=== PATIENT | female | born 1970 | race African-American/Black ===

== ENCOUNTER 2017-06-27 13:15 | Emergency (ER) | payer OTHER ==
[~2017-06-27] VITALS: Ht 180.3 cm; Wt 80.0 kg
[2017-06-27 13:30] VITALS: BP 140/83; PULSE 93; RESP 16; TEMP 98.8; O2SAT 100
[2017-06-27] MEDS ORDERED: VENL1CAP38 PO (13:39)
[2017-06-27] MEDS ORDERED: HYDR50TA94 PO (13:39)
[2017-06-27] MEDS ORDERED: LISI-515 PO (13:39)
[2017-06-27] MEDS ORDERED: GABA600T PO (13:39)
[2017-06-27] MEDS ORDERED: ELVI1TAB3 PO (13:39)
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
[2017-06-27] MEDS ORDERED: ACYC5OIN4 TOPICAL (14:51)
[2017-06-27] MEDS ORDERED: ORPHENADRINE INJ 60 MG/2 ML AMP IM ONE (15:00)
[2017-06-27] MEDS ORDERED: KETOROLAC TROMETHAMINE 60 MG/2 ML (IM) VIAL IM ONE (15:00)
== END 2017-06-27 15:38 | disposition home or self-care (01) ==
LOC: NEPD 13:15
DX: M54.5 Low back pain (principal); V59.60XA Unspecified occupant of pick-up truck or van injured in collision with unspecified motor vehicles in traffic accident, initial encounter; B00.1 Herpesviral vesicular dermatitis; G89.29 Other chronic pain; F31.9 Bipolar disorder, unspecified; B20 Human immunodeficiency virus [HIV] disease; I10 Essential (primary) hypertension; G62.9 Polyneuropathy, unspecified; Z72.0 Tobacco use
CPT/HCPCS: 72100; 96372; 99283; J1885; J2360

== ENCOUNTER 2017-07-04 03:22 | Observation (INO) | payer OTHER ==
[~2017-07-04] VITALS: Ht 180.3 cm; Wt 91.0 kg
[~2017-07-04 03:22] MED LIST: ACYC5OIN4 TOPICAL; ELVI1TAB3 PO; GABA600T PO; HYDR50TA94 PO; LISI-515 PO; VENL1CAP38 PO
[2017-07-04 03:27] VITALS: BP 136/102; PULSE 90; RESP 18; O2SAT 96
[2017-07-04] MEDS ORDERED: RISP0.5T2 PO (03:35)
[2017-07-04] MEDS ORDERED: CITA20TA4 PO (03:35)
[2017-07-04] MEDS ORDERED: SODIUM CHLORID 0.9% 500 ML INJ 500 ML IV ONE (03:45)
[2017-07-04] MEDS ORDERED: SODIUM CHLORIDE 0.9% FLUSH 10 ML FLUSH IV FLUSH PRN ×2 (03:45→06:30)
[2017-07-04] MEDS ORDERED: KETOROLAC TROMETHAMINE 30 MG/ML (IVP) VIAL IVP ONE (03:45)
[2017-07-04 04:04] LABS: AUTOMATED NEUTROPHIL # 8.9 TH/MM3 (1.8-7.7); BASOPHIL # 0.1 TH/MM3 (0-0.2); BASOPHIL % 0.7 % (0.0-2.0); EOSINOPHIL # 0.1 TH/MM3 (0-0.4); EOSINOPHIL % 0.6 % (0.0-4.0); HEMATOCRIT 29.7 % (35.0-46.0); HEMOGLOBIN 9.7 GM/DL (11.6-15.3); LYMPH % 17.4 % (9.0-44.0); MEAN CELL VOLUME 85.9 FL (80.0-100.0); MEAN CORPUSCULAR HGB CONC 32.6 % (32.0-36.0); MEAN PLATELET VOLUME 9.6 FL (7.0-11.0); MONO % 3.4 % (0.0-8.0); MONOCYTE # 0.4 TH/MM3 (0-0.9); NEUT % 77.9 % (16.0-70.0); PLATELET COUNT 419 TH/MM3 (150-450); RED BLOOD COUNT 3.45 MIL/MM3 (4.00-5.30); RED CELL DISTRIBUTION WIDTH 15.4 % (11.6-17.2); WHITE BLOOD COUNT 11.5 TH/MM3 (4.0-11.0)
[2017-07-04 04:12] LABS: INTERNATIONAL NORMALIZED RATIO 1.2 RATIO; PROTHROMBIN TIME - PATIENT 11.7 SEC (9.8-11.6)
[2017-07-04 04:20] LABS: ALBUMIN 2.7 GM/DL (3.4-5.0); ALT (GPT) 22 U/L (10-53); AST (GOT) 15 U/L (15-37); BICARBONATE 21.2 MEQ/L (21.0-32.0); BLOOD UREA NITROGEN 9 MG/DL (7-18); CALCIUM 8.9 MG/DL (8.5-10.1); CHLORIDE 111 MEQ/L (98-107); CREATININE 0.93 MG/DL (0.50-1.00); GLOMERULAR FILTRATION RATE 78 ML/MIN (>89); GLUCOSE,RANDOM 106 MG/DL (74-106); SODIUM (NA) 141 MEQ/L (136-145)
[2017-07-04 04:22] LABS: ALKALINE PHOSPHATASE 96 U/L (45-117); TOTAL BILIRUBIN ADULT 0.4 MG/DL (0.2-1.0); TOTAL PROTEIN 8.6 GM/DL (6.4-8.2)
[2017-07-04] MEDS ORDERED: IOHEXOL 350 MG/ML 10 ML VIAL (for RAD DIAG) IVCONTRAST ONE (04:41)
--- NOTE | 2017-07-04 05:28 | RADRPT ---
EXAM DATE/TIME: 07/04/2017 04:35 [facility] COMPARISON: No previous studies available for comparison. INDICATIONS : Abdomen pain. IV CONTRAST: 100 cc Omnipaque 350 (iohexol) IV ORAL CONTRAST: No oral contrast ingested. RADIATION DOSE: 13.91 CTDIvol (mGy) MEDICAL HISTORY : Hypertension. HIV. SURGICAL HISTORY : IVC Filter placement. ENCOUNTER: Initial ACUITY: 1 day PAIN SCALE: 6/10 LOCATION: Bilateral abdomen TECHNIQUE: Volumetric scanning of the abdomen and pelvis was performed. Using automated exposure control and ad justment of the mA and/or kV according to patient size, radiation dose was kept as low as reasonably achievable to obtain optimal diagnostic quality images. DICOM format image data is available electro nically for review and comparison. FINDINGS: LOWER LUNGS: Bibasilar atelectatic changes LIVER: Except for a punctate granulomatous or dystrophic calcification in the right hepatic lobe, homogeneou s density without focal mass lesion. There is no dilation of the biliary tree. No calcified gallsto rebecca. SPLEEN: Normal size without lesion. PANCREAS: Within normal limits. KIDNEYS: Normal in size and shape. There is no mass, stone or hydronephrosis. ADRENAL GLANDS: Within normal limits. VASCULAR: There is no aortic aneurysm. Infrarenal IVC filter BOWEL/MESENTERY: Very abnormal appearance of the small bowel in the midabdomen. There is diffuse bowel wall thickening with perienteric fluid in the mesenteric leaves. Moderate luminal distention of the affected bowel l oops. More distal small bowel is decompressed ABDOMINAL WALL: Within normal limits. RETROPERITONEUM: There is no lymphadenopathy. BLADDER: No wall thickening or mass. REPRODUCTIVE: Small, 2.3 cm fibroid pedunculated off the uterine fundus. INGUINAL: There is no lymphadenopathy or hernia. MUSCULOSKELETAL: Within normal limits for patient age. CONCLUSION: 1. Very abnormal appearance of the small bowel in the midabdomen with diffuse mural thickening and pe rienteric fluid in the adjacent mesenteric leads. There is also some luminal distention of the affect ed bowel loops. Diagnostic considerations include a nonspecific focal enteritis versus partial small bowel obstruction. 2. 2.3 cm uterine fibroid pedunculated off the uterine fundus. 3. Bibasilar atelectatic changes. Toni Aponte MD on July 04, 2017 at 5:18 Board Certified Radiologist. This report was verified electronically.
[2017-07-04] MEDS ORDERED: METOCLOPRAMIDE INJ 10 MG in SODIUM CHLORIDE 0.9% INJ 50 ML IV ONE (06:15)
--- NOTE | 2017-07-04 06:28 | PD ---
HPI Chief Complaint: Abdominal Pain Time Seen by Provider: 03:37 Travel History International Travel<30 days: No Contact w/Intl Traveler<30days: No Traveled to known affect area: No History of Present Illness HPI Patient is a 47-year-old female of abdominal pain with nausea and vomiting. She says that the pain started yesterday and she started vomiting today. She says she is concerned because she vomited yellow fluid. She says she had a normal bowel movement yesterday. She denies fever chills. She has not taken anything for the pain. Severity is mild to moderate. PFSH Past Medical History Anemia: Yes Autoimmune Disease: Yes (HIV) Bipolar Disorder: Yes Diminished Hearing: No Hypertension: Yes Neurologic: Yes (NEUROPATHY) ?: Unknown : 0 Para: 0 Miscarriage: 0 : 0 Past Surgical History Abdominal Surgery: Yes (EXP LAP) Eye Surgery: Yes (L EYE Enucleation) Other Surgery: Yes (JAW REPAIR) Social History Alcohol Use: Yes (BEER OCCASS) Tobacco Use: Yes (4 CIG/DAY) Substance Use: No Allergies-Medications (Allergen,Severity, Reaction): Coded Allergies: aspirin (Verified Allergy, Severe, 06/27/17) erythromycin base (Verified Allergy, Severe, 06/27/17) Reported Meds & Prescriptions Reported Meds & Active Scripts Active Reported Risperidone 0.5 Mg Tab 0.5 Mg PO Q12HR Citalopram (Citalopram Hydrobromide) 20 Mg Tab 20 Mg PO HS Hydroxyzine HCl 50 Mg Tab 100 Mg PO HS Lisinopril 20 Mg Tab 20 Mg PO DAILY Gabapentin 600 Mg Tab 600 Mg PO TID Genvoya (Ahpwcofjwzod-Kgyrtraool-Jtqozjolpmvo-Tenofvir) [phone] Mg Tab 1 Tab PO DAILY Review of Systems Except as stated in HPI: all other systems reviewed are Neg General / Constitutional: No: Fever, Chills HENT: No: Headaches, Lightheadedness Cardiovascular: No: Chest Pain or Discomfort, Palpitations Respiratory: No: Shortness of Breath Gastrointestinal: Positive: Nausea, Vomiting, Abdominal Pain Musculoskeletal: No: Myalgias Skin: No Rash, No Change in Pigmentation Neurologic: No: Weakness, Dizziness Physical Exam Narrative GENERAL: Awake and alert, no acute distress. SKIN: Focused skin assessment warm/dry. No wounds or signs of infection. HEAD: Atraumatic. Normocephalic. EYES: Pupils equal and round. No scleral icterus. ENT: No nasal bleeding or discharge. Mucous membranes pink and moist. NECK: Trachea midline. No JVD. CARDIOVASCULAR: Regular rate and rhythm. No murmur appreciated. RESPIRATORY: No accessory muscle use. Clear to auscultation. Breath sounds equal bilaterally. GASTROINTESTINAL: Abdomen is distended and tender diffusely, worse in the upper abdomen. There is no rebound or guarding. MUSCULOSKELETAL: No obvious deformities. No clubbing. No cyanosis. No edema. NEUROLOGICAL: Awake and alert. No obvious cranial nerve deficits. Motor grossly within normal limits. Normal speech. PSYCHIATRIC: Appropriate mood and affect; insight and judgment normal. Data Data Last Documented VS Vital Signs Date Time Temp Pulse Resp B/P (MAP) Pulse Ox O2 Delivery O2 Flow Rate FiO2 07/04/17 03:27 90 18 136/102 (113) 96 Orders Orders Complete Blood Count With Diff (07/04/17 03:37) Comprehensive Metabolic Panel (07/04/17 03:37) Lipase (07/04/17 03:37) Prothrombin Time / Inr (Pt) (07/04/17 03:37) Act Partial Throm Time (Ptt) (07/04/17 03:37) Urinalysis - C+S If Indicated (07/04/17 03:37) Ct Abd/Pel W Iv Contrast(Rout) (07/04/17 03:37) Iv Access Insert/Monitor (07/04/17 03:37) Ecg Monitoring (07/04/17 03:37) Oximetry (07/04/17 03:37) Sodium Chloride 0.9% Flush (Ns Flush) (07/04/17 03:45) Ketorolac Inj (Toradol Inj) (07/04/17 03:45) Ed Urine Pregnancytest Poc (07/04/17 03:37) Sodium Chlorid 0.9% 500 Ml Inj (Ns 500 M (07/04/17 03:45) Iohexol 350 Inj (Omnipaque 350 Inj) (07/04/17 04:41) Metoclopramide Inj (Reglan Inj) (07/04/17 06:15) Labs Laboratory Tests Test 07/04/17 03:50 White Blood Count 11.5 TH/MM3 Red Blood Count 3.45 MIL/MM3 Hemoglobin 9.7 GM/DL Hematocrit 29.7 % Mean Corpuscular Volume 85.9 FL Mean Corpuscular Hemoglobin 28.0 PG Mean Corpuscular Hemoglobin Concent 32.6 % Red Cell Distribution Width 15.4 % Platelet Count 419 TH/MM3 Mean Platelet Volume 9.6 FL Neutrophils (%) (Auto) 77.9 % Lymphocytes (%) (Auto) 17.4 % Monocytes (%) (Auto) 3.4 % Eosinophils (%) (Auto) 0.6 % Basophils (%) (Auto) 0.7 % Neutrophils # (Auto) 8.9 TH/MM3 Lymphocytes # (Auto) 2.0 TH/MM3 Monocytes # (Auto) 0.4 TH/MM3 Eosinophils # (Auto) 0.1 TH/MM3 Basophils # (Auto) 0.1 TH/MM3 CBC Comment DIFF FINAL Differential Comment Prothrombin Time 11.7 SEC Prothromb Time International Ratio 1.2 RATIO Activated Partial Thromboplast Time 31.4 SEC Blood Urea Nitrogen 9 MG/DL Creatinine 0.93 MG/DL Random Glucose 106 MG/DL Total Protein 8.6 GM/DL Albumin 2.7 GM/DL Calcium Level 8.9 MG/DL Alkaline Phosphatase 96 U/L Aspartate Amino Transf (AST/SGOT) 15 U/L Alanine Aminotransferase (ALT/SGPT) 22 U/L Total Bilirubin 0.4 MG/DL Sodium Level 141 MEQ/L Potassium Level 4.1 MEQ/L Chloride Level 111 MEQ/L Carbon Dioxide Level 21.2 MEQ/L Anion Gap 9 MEQ/L Estimat Glomerular Filtration Rate 78 ML/MIN Lipase 127 U/L MDM Medical Decision Making Medical Screen Exam Complete: Yes Emergency Medical Condition: Yes Medical Record Reviewed: Yes Differential Diagnosis Cholecystitis versus colitis versus gastritis versus gastroenteritis versus obstruction Narrative Course Patient is a 47-year-old female comes in complaining of abdominal pain with nausea and vomiting. Exam shows distended, tender abdomen. IV established, labs sent. Labs show no acute abnormalities. CT abdomen and pelvis performed and shows obstruction vs entertitis. Last 24 hours Impressions Abdomen/Pelvis CT 07/04/17 0337 Signed Impressions: Service Date/Time: July 04:35 - CONCLUSION: 1. Very abnormal appearance of the small bowel in the midabdomen with diffuse mural thickening and perienteric fluid in the adjacent mesenteric leads. There is also some luminal distention of the affected bowel loops. Diagnostic considerations include a nonspecific focal enteritis versus partial small bowel obstruction. 2. 2.3 cm uterine fibroid pedunculated off the uterine fundus. 3. Bibasilar atelectatic changes. Toni Aponte MD Patient given Zofran and Reglan and is still having trouble keeping fluids down. Placed in observation for further management. Diagnosis Primary Impression: Nausea & vomiting Qualified Codes: R11.2 - Nausea with vomiting, unspecified Admitting Information Admitting Physician Requests: Observation More Gillespie MD July 04, 2017 06:28
[2017-07-04] MEDS ORDERED: NALOXONE HCL 0.4 MG/ML AMP IV PUSH PRN (06:30)
[2017-07-04] MEDS ORDERED: BISACODYL 10 MG SUPP RECTAL PRN (06:30)
[2017-07-04] MEDS ORDERED: LACTULOSE SYRUP 20 GM/30 ML CUP PO PRN (06:30)
[2017-07-04] MEDS ORDERED: ONDANSETRON HCL 4 MG/2 ML VIAL IVP PRN (06:30)
[2017-07-04] MEDS ORDERED: MAGNESIUM HYDROXIDE SUSP 30 ML CUP PO PRN (06:30)
[2017-07-04] MEDS ORDERED: SENNOSIDES 8.6 MG TAB PO PRN (06:30)
[2017-07-04] MEDS: SODIUM CHLOR 0.9% 1000 ML INJ 1,000 ML IV SCH ×2 (06:42→16:45)
[2017-07-04] MEDS: SODIUM CHLORIDE 0.9% FLUSH 10 ML FLUSH IV FLUSH SCH ×2 (06:43→21:00)
[2017-07-04 07:35] VITALS: BP 125/82; PULSE 86; RESP 17; O2SAT 95
[2017-07-04 08:18] LABS: BACTERIA, URINE FEW /hpf; BILIRUBIN, URINE NEG (NEG); BLOOD, URINE NEG (NEG); GLUCOSE,URINE NEG (NEG); KETONE, URINE NEG (NEG); NITRITE,URINE POS (NEG); PH, URINE 6.5 (5.0-8.5); SQUAMOUS EPITHELIAL CELL URINE 2 /hpf (0-5); URINE COLOR YELLOW (YELLW/STRAW); URINE LEUKOCYTE ESTERASE TRACE (NEG); WHITE BLOOD CELL CLUMPS RARE
[2017-07-04] MEDS: DOCUSATE SODIUM 50 MG/SENNA 8.6 MG TAB PO SCH ×2 (09:00→21:00)
--- NOTE | 2017-07-04 09:39 | PD.CONS ---
cc: Frank Pierre MD [facility] Service CONSULTATION NOTE FOR SURGICAL ATTENDING, DR. FRANK PIERRE General Surgery Consult Requested By Dr. Mclaughlin Reason for Consult Gastritis vs PSBO Primary Care Physician Non-Staff History of Present Illness This is a 47 year old female with a past medical history of HIV and neuropathy who presented to the ED early this morning with complaints of severe abdominal pain with associated nausea and vomiting. She describes the pain as a cramping type feeling. The patient denies any known recent sick contacts or travel. She reports she is compliant with her HIV medications. A CT abdomen/pelvis was obtained which showed thickening of the small bowel and luminal distention. She has a mildly elevated WBC. Her other laboratory work is unremarkable. She does have a urinalysis that is being sent for culture and sensitivity. A General Surgery consultation has been requested. Review of Systems Constitutional: COMPLAINS OF: Fever, Chills, Change in appetite, DENIES: Weight loss Endocrine: DENIES: Polydipsia, Polyuria, Polyphagia Eyes: DENIES: Diplopia, Eye inflammation Ears, nose, mouth, throat: DENIES: Hearing loss Respiratory: DENIES: Apneas Cardiovascular: DENIES: Chest pain Gastrointestinal: COMPLAINS OF: Abdominal pain, Nausea, Vomiting, DENIES: Bloody stools, Constipation, Diarrhea Genitourinary: DENIES: Urinary frequency Musculoskeletal: DENIES: Joint pain, Muscle aches Integumentary: DENIES: Abnormal pigmentation Hematologic/lymphatic: DENIES: Bruising Immunologic/allergic: DENIES: Eczema Neurologic: DENIES: Headache, Localized weakness Psychiatric: DENIES: Confusion, Mood changes, Depression Past Family Social History Past Medical History HIV Neuropathy Past Surgical History Exploratory laparotomy for removal of "cyst on back" in 2005 at [facility] repair Eye surgery Reported Medications Genovoya Lisinopril Gabapentin Citalopram Risperidone Hydroxyzine Allergies: Coded Allergies: aspirin (Verified Allergy, Severe, 06/27/17) erythromycin base (Verified Allergy, Severe, 06/27/17) Active Ordered Medications Current Medications Medications (Trade) Dose Ordered Sig/Claire Route Start Time Stop Time Status Last Admin Sodium Chloride 1,000 ml @ 100 mls/hr Q10H IV 07/04/17 06:24 07/04/17 06:42 (NS Flush) 2 ml UNSCH PRN IV FLUSH 07/04/17 06:30 (NS Flush) 2 ml BID IV FLUSH 07/04/17 09:00 (Zofran Inj) 4 mg Q6H PRN IVP 07/04/17 06:30 (Narcan Inj) 0.4 mg UNSCH PRN IV PUSH 07/04/17 06:30 (Tosha-Colace) 1 tab BID PO 07/04/17 09:00 (Milk Of Magnesia Liq) 30 ml Q12H PRN PO 07/04/17 06:30 (Senokot) 17.2 mg Q12H PRN PO 07/04/17 06:30 (Dulcolax Supp) 10 mg DAILY PRN RECTAL 07/04/17 06:30 (Lactulose Liq) 30 ml DAILY PRN PO 07/04/17 06:30 Family History No known history of an esophagus, stomach or rectal cancers. Social History + tobacco use---4-5 cigarettes daily Occasional ETOH use; not daily Denies illicit drug use She lives her locally with a roommate. She is concerned about having enough funds to pay this month's rent. Her father recently . She does not drive. Physical Exam Vital Signs Vital Signs Date Time Temp Pulse Resp B/P (MAP) Pulse Ox O2 Delivery O2 Flow Rate FiO2 07/04/17 08:23 18 07/04/17 07:35 86 17 125/82 (96) 95 Room Air 07/04/17 03:27 90 18 136/102 (113) 96 Physical Exam GENERAL: 47 year old female resting in bed in no acute distress. SKIN: Warm and dry. HEAD: Atraumatic. Normocephalic. EYES: Pupils equal and round. No scleral icterus. No injection or drainage. She has difficulty opening her RIGHT eye completely. ENT: No nasal bleeding or discharge. Mucous membranes pink and moist. NECK: Trachea midline. CARDIOVASCULAR: Regular rate and rhythm. RESPIRATORY: No accessory muscle use. Clear to auscultation. Breath sounds equal bilaterally. GASTROINTESTINAL: Abdomen soft. Obese abdomen. Large well healed midline scar. Tender with light palpation throughout. MUSCULOSKELETAL: Extremities without clubbing, cyanosis, or edema. No obvious deformities. Well healed LEFT knee scar. NEUROLOGICAL: Awake and alert. No obvious cranial nerve deficits. Motor grossly within normal limits. Five out of 5 muscle strength in the arms and legs. Normal speech. PSYCHIATRIC: Appropriate mood and affect; insight and judgment normal. Laboratory Laboratory Tests Test 07/04/17 03:50 07/04/17 07:40 White Blood Count 11.5 Red Blood Count 3.45 Hemoglobin 9.7 Hematocrit 29.7 Mean Corpuscular Volume 85.9 Mean Corpuscular Hemoglobin 28.0 Mean Corpuscular Hemoglobin Concent 32.6 Red Cell Distribution Width 15.4 Platelet Count 419 Mean Platelet Volume 9.6 Neutrophils (%) (Auto) 77.9 Lymphocytes (%) (Auto) 17.4 Monocytes (%) (Auto) 3.4 Eosinophils (%) (Auto) 0.6 Basophils (%) (Auto) 0.7 Neutrophils # (Auto) 8.9 Lymphocytes # (Auto) 2.0 Monocytes # (Auto) 0.4 Eosinophils # (Auto) 0.1 Basophils # (Auto) 0.1 CBC Comment DIFF FINAL Differential Comment Prothrombin Time 11.7 Prothromb Time International Ratio 1.2 Activated Partial Thromboplast Time 31.4 Blood Urea Nitrogen 9 Creatinine 0.93 Random Glucose 106 Total Protein 8.6 Albumin 2.7 Calcium Level 8.9 Alkaline Phosphatase 96 Aspartate Amino Transf (AST/SGOT) 15 Alanine Aminotransferase (ALT/SGPT) 22 Total Bilirubin 0.4 Sodium Level 141 Potassium Level 4.1 Chloride Level 111 Carbon Dioxide Level 21.2 Anion Gap 9 Estimat Glomerular Filtration Rate 78 Lipase 127 Urine Color YELLOW Urine Turbidity CLEAR Urine pH 6.5 Urine Specific [place] GREATER THAN 1.050 Urine Protein 30 Urine Glucose (UA) NEG Urine Ketones NEG Urine Occult Blood NEG Urine Nitrite POS Urine Bilirubin NEG Urine Urobilinogen LESS THAN 2.0 Urine Leukocyte Esterase TRACE Urine WBC 21 Urine WBC Clumps RARE Urine Squamous Epithelial Cells 2 Urine Bacteria FEW Microscopic Urinalysis Comment CULTURE INDICATED Date/Time Source Procedure Growth Status 07/04/17 07:40 Urine Clean Catch Urine Culture Pending Received Result Diagram: 07/04/17 0350 07/04/17 0350 Imaging Last 48 hours Impressions Abdomen/Pelvis CT 07/04/17 0337 Signed Impressions: Service Date/Time: , July 04, 2017 04:35 - CONCLUSION: 1. Very abnormal appearance of the small bowel in the midabdomen with diffuse mural thickening and perienteric fluid in the adjacent mesenteric leads. There is also some luminal distention of the affected bowel loops. Diagnostic considerations include a nonspecific focal enteritis versus partial small bowel obstruction. 2. 2.3 cm uterine fibroid pedunculated off the uterine fundus. 3. Bibasilar atelectatic changes. Toni Aponte MD Assessment and Plan Problem List: (1) Nausea & vomiting ICD Codes: R11.2 - Nausea with vomiting, unspecified Status: Acute (2) Gastritis ICD Codes: K29.70 - Gastritis, unspecified, without bleeding Status: Acute (3) Acute diarrhea ICD Codes: R19.7 - Diarrhea, unspecified Status: Acute (4) Anemia ICD Codes: D64.9 - Anemia, unspecified Status: Chronic (5) UTI (urinary tract infection) ICD Codes: N39.0 - Urinary tract infection, site not specified Status: Acute (6) HIV (human immunodeficiency virus infection) ICD Codes: B20 - Human immunodeficiency virus [HIV] disease Status: Chronic (7) Partial small bowel obstruction ICD Codes: K56.600 - Partial intestinal obstruction, unspecified as to cause Status: Acute Assessment and Plan 47 year old female with abdominal pain/nausea/vomiting may be related to UTI -CT suggest possible PSBO -Nausea controlled now; if persistent nausea would recommend NGT placement to LIWS but right now would hold off -IVF -Await urine culture -Continue home medications -Okay for a few ice chips for now; sparingly -Depending on course may benefit from SBFT tomorrow -Will attempt non operative treatment and follow closely -Thank you for this consult Discussed Condition With Dr. Gabby Emery Attending Statement CONSULTATION NOTE FOR SURGICAL ATTENDING, DR. FRANK PIERRE Patient seen in the emergency room Now she complains of profuse watery diarrhea Abdominal exam benign Continue medical therapy I suspect she has a gastroenteritis Start her on liquid diet I agree with above assessment and plan. The exam, history, and the medical decision-making described in the above note were completed with the assistance of the mid-level provider. I reviewed and agree with the findings presented. I attest that I had a [id number] encounter with the patient on the same day, and personally performed and documented my assessment and findings in the medical record. The following services were provided during this hospital visit: Chart data review, vital sign assessments/reviewing monitor data Review of consultations notes if present. Medication orders/review and/or management Ordering and/or reviewing lab tests Ordering and/or interpreting/reviewing x-rays and/or diagnostic studies Care of the patient and discussion of the patient with the care team Documentation time To help prompt me to consider important information that might be impacting today's encounter and assessment, Information from prior notes written by myself or my colleagues may have been "brought forward/copy and pasted" into today's note. Problem Qualifiers (1) Nausea & vomiting: Qualified Codes: R11.2 - Nausea with vomiting, unspecified (2) UTI (urinary tract infection): Qualified Codes: N30.00 - Acute cystitis without hematuria Monse Jefferson/First Jeff BONILLA July 04, 2017 09:39 Frank Pierre MD July 04, 2017 20:12
[2017-07-04 10:29] VITALS: BP 102/59; PULSE 70; RESP 18; TEMP 97.9; O2SAT 96
[2017-07-04] MEDS ORDERED: MORPHINE SULFATE 2 MG/ML SYRINGE IV PUSH PRN (13:00)
[2017-07-04] MEDS: MORPHINE SULFATE 2 MG/ML SYRINGE IV PUSH PRN ×3 (15:27→22:06)
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
[2017-07-04 16:15] VITALS: BP 125/92; PULSE 71; RESP 20; TEMP 97.6; O2SAT 98
[2017-07-04] MEDS: GENVOYA PO SCH (17:30)
[2017-07-04] MEDS: GABAPENTIN 300 MG CAP PO SCH (18:00)
[2017-07-04] MEDS ORDERED: GENVOYA PO SCH (18:00)
[2017-07-04] MEDS: cefTRIAXone INJ 1,000 MG in SODIUM CHLORIDE 0.9% INJ 100 ML IV SCH (18:44)
[2017-07-04 19:30] VITALS: BP 116/70; PULSE 71; RESP 17; TEMP 97.7; O2SAT 96
[2017-07-04] MEDS: risperiDONE 0.5 MG TAB PO SCH (22:00)
[2017-07-04] MEDS: CITALOPRAM HYDROBROMIDE 20 MG TAB PO SCH (22:00)
[2017-07-04] MEDS: hydrOXYzine HCL 50 MG TAB PO SCH (22:01)
[2017-07-04 23:31] VITALS: BP 124/72; PULSE 75; RESP 17; TEMP 97.7; O2SAT 93
[2017-07-05] MEDS: MORPHINE SULFATE 2 MG/ML SYRINGE IV PUSH PRN ×2 (02:02→09:19)
[2017-07-05] MEDS: SODIUM CHLOR 0.9% 1000 ML INJ 1,000 ML IV SCH ×3 (03:42→21:45)
[2017-07-05 04:03] VITALS: BP 125/80; PULSE 76; RESP 17; TEMP 98; O2SAT 96
[2017-07-05 05:22] LABS: ALBUMIN 2.3 GM/DL (3.4-5.0); AST (GOT) 13 U/L (15-37); BICARBONATE 20.5 MEQ/L (21.0-32.0); BLOOD UREA NITROGEN 8 MG/DL (7-18); CALCIUM 8.3 MG/DL (8.5-10.1); CHLORIDE 113 MEQ/L (98-107); GLOMERULAR FILTRATION RATE 81 ML/MIN (>89); GLUCOSE,RANDOM 97 MG/DL (74-106); SODIUM (NA) 144 MEQ/L (136-145)
[2017-07-05 05:23] LABS: ALT (GPT) 14 U/L (10-53)
[2017-07-05 05:26] LABS: ALKALINE PHOSPHATASE 84 U/L (45-117); TOTAL BILIRUBIN ADULT 0.3 MG/DL (0.2-1.0); TOTAL PROTEIN 7.2 GM/DL (6.4-8.2)
[2017-07-05 07:04] VITALS: BP 116/79; PULSE 72; RESP 16; TEMP 98.4; O2SAT 95
[2017-07-05] MEDS ORDERED: NON-FORMULARY DRUG (Elvitegravir-Cobicistat-Emtricitabin-Tenofvir (Genvoya) 1 TAB) PO SCH (09:00)
[2017-07-05] MEDS: risperiDONE 0.5 MG TAB PO SCH ×2 (09:17→19:51)
[2017-07-05] MEDS: GABAPENTIN 300 MG CAP PO SCH ×3 (09:17→18:12)
[2017-07-05] MEDS: SODIUM CHLORIDE 0.9% FLUSH 10 ML FLUSH IV FLUSH SCH ×2 (09:18→19:51)
[2017-07-05] MEDS: DOCUSATE SODIUM 50 MG/SENNA 8.6 MG TAB PO SCH ×3 (09:18→19:55)
[2017-07-05] MEDS: GENVOYA PO SCH (09:18)
--- NOTE | 2017-07-05 09:27 | HHI.PR ---
Subjective Remarks Follow up for partial SBO vs enteritis. The patient reports improvement overnight. Still has some mild diffuse abdominal pain. Denies nausea/vomiting. Had 2 episodes of nonbloody diarrhea overnight. Denies fevers or chills. Dysuria resolved after receiving antibiotics. Objective Vitals Vital Signs Date Time Temp Pulse Resp B/P (MAP) Pulse Ox O2 Delivery O2 Flow Rate FiO2 07/05/17 07:04 98.4 72 16 116/79 (91) 95 07/05/17 04:03 98.0 76 17 125/80 (95) 96 07/04/17 23:31 97.7 75 17 124/72 (89) 93 07/04/17 19:30 97.7 71 17 116/70 (85) 96 07/04/17 16:15 97.6 71 20 125/92 (103) 98 07/04/17 10:29 97.9 70 18 102/59 (73) 96 I/O 07/04/17 07/04/17 07/04/17 07/05/17 07/05/17 07/05/17 07:00 15:00 23:00 07:00 15:00 23:00 Intake Total 500 ml Balance 500 ml Intake IV Total 500 ml # Voids 1 Result Diagram: 07/04/17 0350 07/05/17 0300 Imaging Last Impressions Abdomen/Pelvis CT 07/04/17 0337 Signed Impressions: Service Date/Time: July 04:35 - CONCLUSION: 1. Very abnormal appearance of the small bowel in the midabdomen with diffuse mural thickening and perienteric fluid in the adjacent mesenteric leads. There is also some luminal distention of the affected bowel loops. Diagnostic considerations include a nonspecific focal enteritis versus partial small bowel obstruction. 2. 2.3 cm uterine fibroid pedunculated off the uterine fundus. 3. Bibasilar atelectatic changes. Toni Aponte MD Objective Remarks GENERAL: Well-nourished, well-developed pleasant middle aged female patient in [facility]. SKIN: Warm and dry. No rash. HEENT: Normocephalic. Atraumatic.Pupils equal and round. Mucous membranes pink and moist. CARDIOVASCULAR: Regular rate and rhythm. No murmur appreciated. RESPIRATORY: No accessory muscle use. Clear to auscultation. Breath sounds equal bilaterally. GASTROINTESTINAL: Abdomen soft, nondistended, minimal TTP throughout bilateral upper quadrants. . Normoactive bowel sounds x4. MUSCULOSKELETAL: No obvious deformities. Extremities without clubbing, cyanosis , or edema. NEUROLOGICAL: Awake and alert. No obvious cranial nerve deficits. Motor grossly within normal limits. Normal speech. PSYCHIATRIC: Appropriate mood and affect; insight and judgment normal. Medications and IVs Current Medications Medications (Trade) Dose Ordered Sig/Claire Route Start Time Stop Time Status Last Admin Sodium Chloride 1,000 ml @ 100 mls/hr Q10H IV 07/04/17 06:24 07/05/17 03:42 (NS Flush) 2 ml UNSCH PRN IV FLUSH 07/04/17 06:30 (NS Flush) 2 ml BID IV FLUSH 07/04/17 09:00 07/05/17 09:18 (Zofran Inj) 4 mg Q6H PRN IVP 07/04/17 06:30 (Narcan Inj) 0.4 mg UNSCH PRN IV PUSH 07/04/17 06:30 (Tosha-Colace) 1 tab BID PO 07/04/17 09:00 (Milk Of Magnesia Liq) 30 ml Q12H PRN PO 07/04/17 06:30 (Senokot) 17.2 mg Q12H PRN PO 07/04/17 06:30 (Dulcolax Supp) 10 mg DAILY PRN RECTAL 07/04/17 06:30 (Lactulose Liq) 30 ml DAILY PRN PO 07/04/17 06:30 (Morphine Inj) 2 mg Q3H PRN IV PUSH 07/04/17 13:00 (Morphine Inj) 3 mg Q3H PRN IV PUSH 07/04/17 13:00 07/05/17 09:19 (CeleXA) 20 mg HS PO 07/04/17 21:00 07/04/17 22:00 (Neurontin) 600 mg TID PO 07/04/17 18:00 07/05/17 09:17 (Atarax) 100 mg HS PO 07/04/17 21:00 07/04/17 22:01 (risperDAL) 0.5 mg Q12HR PO 07/04/17 21:00 07/05/17 09:17 Patient Own Medication PT OWN MED: TAKE 1 TAB BY MO... DAILY PO 5/3/18 17:30 07/05/17 09:18 Ceftriaxone Sodium 1000 mg/ Sodium Chloride 100 ml @ 200 mls/hr Q24H IV 07/04/17 18:00 07/04/17 18:44 ([place] 5-325 Mg) 1 tab Q4H PRN PO 07/05/17 09:30 ([place] 5-325 Mg) 2 tab Q4H PRN PO 07/05/17 09:30 (Morphine Inj) 2 mg Q3H PRN IV PUSH 07/05/17 09:30 A/P Problem List: (1) Partial small bowel obstruction ICD Code: K56.600 - Partial intestinal obstruction, unspecified as to cause Status: Acute (2) UTI (urinary tract infection) ICD Code: N39.0 - Urinary tract infection, site not specified Status: Acute (3) Anemia ICD Code: D64.9 - Anemia, unspecified Status: Chronic (4) HIV (human immunodeficiency virus infection) ICD Code: B20 - Human immunodeficiency virus [HIV] disease Status: Chronic Assessment and Plan 47-year-old female with history of HIV, neuropathy, anemia, and prior exploratory laparotomy for ruptured cyst, presents with 2 day history of abdominal pain, nausea/vomiting, and diarrhea. Partial SBO, Gastroenteritis: presented with 2day abdominal pain/nausea/vomiting , with small amount of diarrhea output. -CT abd reviewed, shows very abnormal appearance of the small bowel in the mid abdomen with diffuse mural thickening and perienteric fluid in the adjacent mesenteric leads; also some luminal distention of the affected bowel loops; diagnostic considerations include nonspecific focal enteritis versus small bowel obstruction -General surgery consulted, recommends nonoperative management for now -Symptoms improving, having diarrhea, Advanced diet to full liquids today -Supportive treatment with IV fluid hydration, antiemetics prn, and IV morphine prn pain -Possible component of gastroenteritis, Stool studies pending, Cdiff negative UTI: UA with +leuks/nitrites. Patient symptomatic with +dysuria and abdominal pain. -start on antibiotics with IV rocephin -follow urine culture HIV: chronic -continue patient's home meds -continue outpatient follow up Neuropathy: chronic -continue patient's gabapentin Normocytic Anemia: chronic -patient reports chronic history of anemia -Hgb 9.7, no previous labs to compare -uterine fibroids seen on abdominal CT -no signs of active bleeding -continue to monitor CBC, transfuse if needed DVT Prophylaxis: teds/scds Discharge Planning Discharge pending further clinical improvement and tolerating oral intake. Possible discharge later today vs tomorrow. Problem Qualifiers (1) UTI (urinary tract infection): Qualified Codes: N30.00 - Acute cystitis without hematuria Annie Mendoza PA-C July 05, 2017 9:27 am
[2017-07-05] MEDS ORDERED: ACETAMINOPHEN/HYDROcodone 325 MG/5 MG TAB PO PRN (09:30)
[2017-07-05] MEDS ORDERED: MORPHINE SULFATE 2 MG/ML SYRINGE IV PUSH PRN (09:30)
[2017-07-05 11:31] VITALS: BP 120/82; PULSE 78; RESP 20; TEMP 97.9; O2SAT 95
[2017-07-05] MEDS: ACETAMINOPHEN/HYDROcodone 325 MG/5 MG TAB PO PRN (14:15)
[2017-07-05 15:27] VITALS: BP 101/64; PULSE 80; RESP 16; TEMP 97.9; O2SAT 95
--- NOTE | 2017-07-05 18:00 | HHI.PR ---
cc: Frank Etienne MD Subjective Subjective Notes DAILY PROGRESS NOTE FOR SURGICAL ATTENDING, DR. FRANK ETIENNE Resting in bed States pain is better Had multiple liquid BMs overnight Objective Vitals/I&O Vital Signs Date Time Temp Pulse Resp B/P (MAP) Pulse Ox O2 Delivery O2 Flow Rate FiO2 07/05/17 15:27 97.9 80 16 101/64 (76) 95 07/04/17 07:35 Room Air Labs Laboratory Tests Test 07/04/17 21:30 07/05/17 03:00 Stool C. difficile Toxin (PCR) NEGATIVE Stl C. difficile Toxin Epiderm 027 PRESUMPTIVE NEGATIVE Blood Urea Nitrogen 8 Creatinine 0.90 Random Glucose 97 Total Protein 7.2 Albumin 2.3 Calcium Level 8.3 Alkaline Phosphatase 84 Aspartate Amino Transf (AST/SGOT) 13 Alanine Aminotransferase (ALT/SGPT) 14 Total Bilirubin 0.3 Sodium Level 144 Potassium Level 3.9 Chloride Level 113 Carbon Dioxide Level 20.5 Anion Gap 11 Estimat Glomerular Filtration Rate 81 Date/Time Source Procedure Growth Status 07/04/17 21:30 Stool Stool - Final NO ENTERIC PATHOGENS DETECTED BY PCR... Complete 07/04/17 07:40 Urine Clean Catch Urine Culture - Preliminary Gram Negative Harris Resulted Radiology Last 48 hours Impressions Abdomen/Pelvis CT 07/04/17 033 Signed Impressions: Service Date/Time: July 04:35 - CONCLUSION: 1. Very abnormal appearance of the small bowel in the midabdomen with diffuse mural thickening and perienteric fluid in the adjacent mesenteric leads. There is also some luminal distention of the affected bowel loops. Diagnostic considerations include a nonspecific focal enteritis versus partial small bowel obstruction. 2. 2.3 cm uterine fibroid pedunculated off the uterine fundus. 3. Bibasilar atelectatic changes. Toni Aponte MD Cardiovascular: Regular Lungs: Clear Abdomen: Non-distended, Other (mininally tender to palpation ) Extremities: No edema A/P Problem List: (1) UTI (urinary tract infection) ICD Codes: N39.0 - Urinary tract infection, site not specified Status: Acute (2) Nausea & vomiting ICD Codes: R11.2 - Nausea with vomiting, unspecified Status: Acute (3) Gastritis ICD Codes: K29.70 - Gastritis, unspecified, without bleeding Status: Acute (4) Acute diarrhea ICD Codes: R19.7 - Diarrhea, unspecified Status: Acute (5) Anemia ICD Codes: D64.9 - Anemia, unspecified Status: Chronic (6) HIV (human immunodeficiency virus infection) ICD Codes: B20 - Human immunodeficiency virus [HIV] disease Status: Chronic (7) Partial small bowel obstruction ICD Codes: K56.600 - Partial intestinal obstruction, unspecified as to cause Status: Acute Assessment and Plan 47 year old female with abdominal pain; SBO -Tolerated clear; advance diet -Treat UTI -OOB and mobilize as tolerated -Continue nonoperative treatment Attending Statement NOTE FOR SURGICAL ATTENDING, DR. FRANK ETIENNE Patient feels better would like to eat something Abdominal pain improved Patient appears to have a urinary tract infection which caused an ileus which is improving on antibiotic therapy No surgical intervention required at this time I agree with above assessment and plan. The exam, history, and the medical decision-making described in the above note were completed with the assistance of the mid-level provider. I reviewed and agree with the findings presented. I attest that I had a [id number] encounter with the patient on the same day, and personally performed and documented my assessment and findings in the medical record. The following services were provided during this hospital visit: Chart data review, vital sign assessments/reviewing monitor data Review of consultations notes if present. Medication orders/review and/or management Ordering and/or reviewing lab tests Ordering and/or interpreting/reviewing x-rays and/or diagnostic studies Care of the patient and discussion of the patient with the care team Documentation time To help prompt me to consider important information that might be impacting today's encounter and assessment, Information from prior notes written by myself or my colleagues may have been "brought forward/copy and pasted" into today's note. Problem Qualifiers (1) UTI (urinary tract infection): Qualified Codes: N30.00 - Acute cystitis without hematuria (2) Nausea & vomiting: Qualified Codes: G43.A1 - Cyclical vomiting, intractable Monse JeffersonP/Fiscal Services Director [employer] July 05, 2017 18:00 Frank Etienne MD July 06, 2017 11:00
[2017-07-05] MEDS: cefTRIAXone INJ 1,000 MG in SODIUM CHLORIDE 0.9% INJ 100 ML IV SCH (18:12)
[2017-07-05 19:49] VITALS: BP 111/75; PULSE 83; RESP 16; TEMP 98.5; O2SAT 97
[2017-07-05] MEDS: CITALOPRAM HYDROBROMIDE 20 MG TAB PO SCH (19:53)
[2017-07-05] MEDS: hydrOXYzine HCL 50 MG TAB PO SCH (19:59)
[2017-07-05 23:59] VITALS: BP 111/77; PULSE 76; RESP 16; TEMP 99; O2SAT 97
[2017-07-06] MEDS: ACETAMINOPHEN/HYDROcodone 325 MG/5 MG TAB PO PRN ×3 (01:26→21:15)
[2017-07-06 04:15] VITALS: BP 109/69; PULSE 78; RESP 16; TEMP 98.3; O2SAT 94
[2017-07-06 07:36] VITALS: BP 127/77; PULSE 74; RESP 20; TEMP 98.6; O2SAT 98
[2017-07-06] MEDS: SODIUM CHLOR 0.9% 1000 ML INJ 1,000 ML IV SCH ×2 (08:24→18:25)
[2017-07-06] MEDS: DOCUSATE SODIUM 50 MG/SENNA 8.6 MG TAB PO SCH ×2 (08:58→21:16)
[2017-07-06] MEDS: risperiDONE 0.5 MG TAB PO SCH ×2 (08:59→21:16)
[2017-07-06] MEDS: GENVOYA PO SCH (08:59)
[2017-07-06] MEDS: GABAPENTIN 300 MG CAP PO SCH ×3 (08:59→18:22)
[2017-07-06] MEDS: SODIUM CHLORIDE 0.9% FLUSH 10 ML FLUSH IV FLUSH SCH ×2 (09:00→21:00)
--- NOTE | 2017-07-06 09:41 | HHI.PR ---
Subjective Remarks Follow up for partial SBO vs gastroenteritis. The patient reports multiple episodes of diarrhea yesterday, no BM since last night. Denies any nausea/ vomiting. She tolerated regular food for dinner last night. Denies fevers/ chills. She reports upper abdominal soreness, overall improved. Dysuria resolved. She has no other medical complaints at this time. Objective Vitals Vital Signs Date Time Temp Pulse Resp B/P (MAP) Pulse Ox O2 Delivery O2 Flow Rate FiO2 07/06/17 07:36 98.6 74 20 127/77 (94) 98 07/06/17 04:15 98.3 78 16 109/69 (82) 94 07/06/17 02:30 16 07/05/17 23:59 99.0 76 16 111/77 (88) 97 07/05/17 20:15 16 07/05/17 19:49 98.5 83 16 111/75 (87) 97 07/05/17 15:27 97.9 80 16 101/64 (76) 95 07/05/17 11:31 97.9 78 20 120/82 (95) 95 Result Diagram: 07/04/17 0350 07/05/17 0300 Imaging Last Impressions Abdomen/Pelvis CT 07/04/17 0337 Signed Impressions: Service Date/Time: July 04:35 - CONCLUSION: 1. Very abnormal appearance of the small bowel in the midabdomen with diffuse mural thickening and perienteric fluid in the adjacent mesenteric leads. There is also some luminal distention of the affected bowel loops. Diagnostic considerations include a nonspecific focal enteritis versus partial small bowel obstruction. 2. 2.3 cm uterine fibroid pedunculated off the uterine fundus. 3. Bibasilar atelectatic changes. Toni Aponte MD Objective Remarks GENERAL: Well-nourished, well-developed pleasant middle aged female patient in [facility]. Sleeping upon my arrival. SKIN: Warm and dry. No rash. HEENT: Normocephalic. Atraumatic. Left eye with old injury, keeps eye shut. Right eye pupil round. Mucous membranes pink and moist. CARDIOVASCULAR: Regular rate and rhythm. No murmur appreciated. RESPIRATORY: No accessory muscle use. Clear to auscultation. Breath sounds equal bilaterally. GASTROINTESTINAL: Abdomen soft, nondistended, minimal TTP throughout bilateral upper quadrants, overall improved. Normoactive bowel sounds x4. MUSCULOSKELETAL: No obvious deformities. Extremities without clubbing, cyanosis , or edema. NEUROLOGICAL: Awake and alert. No obvious cranial nerve deficits. Motor grossly within normal limits. Normal speech. PSYCHIATRIC: Appropriate mood and affect; insight and judgment normal. Medications and IVs Current Medications Medications (Trade) Dose Ordered Sig/Claire Route Start Time Stop Time Status Last Admin Sodium Chloride 1,000 ml @ 100 mls/hr Q10H IV 07/04/17 06:24 07/05/17 21:45 (NS Flush) 2 ml UNSCH PRN IV FLUSH 07/04/17 06:30 (NS Flush) 2 ml BID IV FLUSH 07/04/17 09:00 07/06/17 09:00 (Zofran Inj) 4 mg Q6H PRN IVP 07/04/17 06:30 (Narcan Inj) 0.4 mg UNSCH PRN IV PUSH 07/04/17 06:30 (Tosha-Colace) 1 tab BID PO 07/04/17 09:00 (Milk Of Magnesia Liq) 30 ml Q12H PRN PO 07/04/17 06:30 (Senokot) 17.2 mg Q12H PRN PO 07/04/17 06:30 (Dulcolax Supp) 10 mg DAILY PRN RECTAL 07/04/17 06:30 (Lactulose Liq) 30 ml DAILY PRN PO 07/04/17 06:30 (Morphine Inj) 2 mg Q3H PRN IV PUSH 07/04/17 13:00 (Morphine Inj) 3 mg Q3H PRN IV PUSH 07/04/17 13:00 07/05/17 09:19 (CeleXA) 20 mg HS PO 07/04/17 21:00 07/05/17 19:53 (Neurontin) 600 mg TID PO 07/04/17 18:00 07/06/17 08:59 (Atarax) 100 mg HS PO 07/04/17 21:00 07/05/17 19:59 (risperDAL) 0.5 mg Q12HR PO 07/04/17 21:00 07/06/17 08:59 Patient Own Medication PT OWN MED: TAKE 1 TAB BY MO... DAILY PO 07/04/17 17:30 07/06/17 08:59 Ceftriaxone Sodium 1000 mg/ Sodium Chloride 100 ml @ 200 mls/hr Q24H IV 07/04/17 18:00 07/05/17 18:12 ([place] 5-325 Mg) 1 tab Q4H PRN PO 07/05/17 09:30 ([place] 5-325 Mg) 2 tab Q4H PRN PO 07/05/17 09:30 07/06/17 09:06 (Morphine Inj) 2 mg Q3H PRN IV PUSH 07/05/17 09:30 07/05/17 20:04 A/P Problem List: (1) Partial small bowel obstruction ICD Code: K56.600 - Partial intestinal obstruction, unspecified as to cause Status: Acute (2) UTI (urinary tract infection) ICD Code: N39.0 - Urinary tract infection, site not specified Status: Acute (3) Anemia ICD Code: D64.9 - Anemia, unspecified Status: Chronic (4) HIV (human immunodeficiency virus infection) ICD Code: B20 - Human immunodeficiency virus [HIV] disease Status: Chronic Assessment and Plan 47-year-old female with history of HIV, neuropathy, anemia, and prior exploratory laparotomy for ruptured cyst, presents with 2 day history of abdominal pain, nausea/vomiting, and diarrhea. Partial SBO, Gastroenteritis: presented with 2day abdominal pain/nausea/vomiting , with small amount of diarrhea output. -CT abd reviewed, shows very abnormal appearance of the small bowel in the mid abdomen with diffuse mural thickening and perienteric fluid in the adjacent mesenteric leads; also some luminal distention of the affected bowel loops; diagnostic considerations include nonspecific focal enteritis versus small bowel obstruction -General surgery consulted, recommends nonoperative management for now -Supportive treatment with IV fluid hydration, antiemetics prn, and IV morphine prn pain -Possible component of viral gastroenteritis, Stool studies negative, Cdiff negative -Symptoms much improved, diet advanced to regular, patient tolerating well, can likely discharge today if ok with gen surg UTI: UA with +leuks/nitrites. Patient symptomatic with +dysuria and abdominal pain. -start on antibiotics with IV rocephin -preliminary urine culture with gram negative janay -plan to transition to oral antibiotics at discharge depending on C&S HIV: chronic -continue patient's home meds -continue outpatient follow up Neuropathy: chronic -continue patient's gabapentin Normocytic Anemia: chronic -patient reports chronic history of anemia -Hgb 9.7, no previous labs to compare -uterine fibroids seen on abdominal CT -no signs of active bleeding DVT Prophylaxis: teds/scds Discharge Planning 0930hrs: Likely discharge later today if tolerating oral intake and cleared by general surgery. Await urine culture. Problem Qualifiers (1) UTI (urinary tract infection): Qualified Codes: N30.00 - Acute cystitis without hematuria Annie Mendoza PA-C July 06, 2017 9:41 am
[2017-07-06] MEDS ORDERED: CIPR500T2 PO (14:04)
[2017-07-06] MEDS ORDERED: LACTCHW3 CHEW (14:04)
--- NOTE | 2017-07-06 14:04 | HHI.DCPOC ---
Discharge Care Plan Diagnosis: (1) Acute diarrhea (2) Gastritis (3) Partial small bowel obstruction (4) UTI (urinary tract infection) Goals to Promote Your Health * To prevent worsening of your condition and complications * To maintain your health at the optimal level Directions to Meet Your Goals Take your medications as prescribed Follow your dietary instruction Follow activity as directed Keep your appointments as scheduled Take your immunizations and boosters as scheduled If your symptoms worsen call your PCP, if no PCP go to Urgent Care Center or Emergency Room Smoking is Dangerous to Your Health. Avoid second hand smoke Call the 24-hour hour crisis hotline for domestic abuse at Annie Mendoza PA-C July 06, 2017 14:04
[2017-07-06 15:02] VITALS: BP 127/84; PULSE 80; RESP 16; TEMP 98.6; O2SAT 98
[2017-07-06] MEDS: cefTRIAXone INJ 1,000 MG in SODIUM CHLORIDE 0.9% INJ 100 ML IV SCH (18:23)
[2017-07-06 19:49] VITALS: BP 150/91; PULSE 79; RESP 18; TEMP 98; O2SAT 97
[2017-07-06] MEDS: CITALOPRAM HYDROBROMIDE 20 MG TAB PO SCH (21:16)
[2017-07-06] MEDS: hydrOXYzine HCL 50 MG TAB PO SCH (21:29)
[2017-07-07 00:43] VITALS: BP 116/74; PULSE 74; RESP 20; TEMP 98.2; O2SAT 93
[2017-07-07] MEDS: ACETAMINOPHEN/HYDROcodone 325 MG/5 MG TAB PO PRN (03:56)
[2017-07-07 04:07] VITALS: BP 143/77; PULSE 73; RESP 18; TEMP 98.4; O2SAT 96
[2017-07-07] MEDS: SODIUM CHLOR 0.9% 1000 ML INJ 1,000 ML IV SCH (04:24)
[2017-07-07 07:54] VITALS: BP 128/89; PULSE 71; RESP 16; TEMP 98.4; O2SAT 96
[2017-07-07] MEDS: DOCUSATE SODIUM 50 MG/SENNA 8.6 MG TAB PO SCH (09:00)
[2017-07-07] MEDS: SODIUM CHLORIDE 0.9% FLUSH 10 ML FLUSH IV FLUSH SCH (09:00)
[2017-07-07] MEDS: risperiDONE 0.5 MG TAB PO SCH (09:27)
[2017-07-07] MEDS: GABAPENTIN 300 MG CAP PO SCH (09:27)
[2017-07-07] MEDS: GENVOYA PO SCH (09:28)
--- NOTE | 2017-07-07 09:28 | HHI.DS ---
Discharge Summary Admission Date July 04, 2017 at 6:29 am Discharge Date: July 07, 2017 Admitting Diagnosis intractable vomiting, possible SBO (1) Partial small bowel obstruction ICD Code: K56.600 - Partial intestinal obstruction, unspecified as to cause Diagnosis: Principal Status: Acute (2) UTI (urinary tract infection) ICD Code: N39.0 - Urinary tract infection, site not specified Diagnosis: Secondary Status: Acute (3) Anemia ICD Code: D64.9 - Anemia, unspecified Diagnosis: Secondary Status: Chronic (4) HIV (human immunodeficiency virus infection) ICD Code: B20 - Human immunodeficiency virus [HIV] disease Status: Chronic Procedures None. Brief History - From Admission 47-year-old female with history of HIV, neuropathy, anemia, and prior exploratory laparotomy for ruptured cyst, presents with 2 day history of abdominal pain, nausea/vomiting, and diarrhea. Patient reports 2 days ago she woke up with constant severe 10/10 diffuse abdominal pain. She then started vomiting which prompted her to come to the hospital. She has been having small bouts of nonbloody diarrhea 2 to 3 times a day. Denies fevers or chills. She does also report dysuria that started 2 days ago. Denies any increased urinary frequency/urgency. She reports history of a ruptured intra-abdominal cyst resulting in emergent exploratory laparotomy. She denies any other abdominal surgeries. Denies any history of bowel obstructions. Denies any other medical complaints at this time including no chest pain or shortness of breath. She reports seasonal allergies with recent congestion and postnasal drip with cough. CBC/BMP: 07/04/17 0350 07/05/17 0300 Significant Findings Laboratory Tests Test 07/04/17 21:30 07/05/17 03:00 Albumin 2.3 GM/DL (3.4-5.0) Calcium Level 8.3 MG/DL (8.5-10.1) Aspartate Amino Transf (AST/SGOT) 13 U/L (15-37) Chloride Level 113 MEQ/L (98-107) Carbon Dioxide Level 20.5 MEQ/L (21.0-32.0) Estimat Glomerular Filtration Rate 81 ML/MIN (>89) Imaging Last Impressions Abdomen/Pelvis CT 07/04/17 0337 Signed Impressions: Service Date/Time: July 04:35 - CONCLUSION: 1. Very abnormal appearance of the small bowel in the midabdomen with diffuse mural thickening and perienteric fluid in the adjacent mesenteric leads. There is also some luminal distention of the affected bowel loops. Diagnostic considerations include a nonspecific focal enteritis versus partial small bowel obstruction. 2. 2.3 cm uterine fibroid pedunculated off the uterine fundus. 3. Bibasilar atelectatic changes. Toni Aponte MD PE at Discharge GENERAL: Well-nourished, well-developed pleasant middle aged female patient in [facility]. Sleeping upon my arrival. SKIN: Warm and dry. No rash. HEENT: Normocephalic. Atraumatic. Left eye with old injury, keeps eye shut. Right eye pupil round. Mucous membranes pink and moist. CARDIOVASCULAR: Regular rate and rhythm. No murmur appreciated. RESPIRATORY: No accessory muscle use. Clear to auscultation. Breath sounds equal bilaterally. GASTROINTESTINAL: Abdomen soft, nondistended, nontender today. Normoactive bowel sounds x4. MUSCULOSKELETAL: No obvious deformities. Extremities without clubbing, cyanosis , or edema. NEUROLOGICAL: Awake and alert. No obvious cranial nerve deficits. Motor grossly within normal limits. Normal speech. PSYCHIATRIC: Appropriate mood and affect; insight and judgment normal. Pt update on day of discharge The patient reports feeling better today. Had BMs yesterday, none today. Abdominal pain improved. Denies nausea/vomiting or fevers/chills. Tolerating oral intake. She wants to go home. Hospital Course 47-year-old female with history of HIV, neuropathy, anemia, and prior exploratory laparotomy for ruptured cyst, presents with 2 day history of abdominal pain, nausea/vomiting, and diarrhea. Partial SBO, Gastroenteritis: presented with 2day abdominal pain/nausea/vomiting , with small amount of diarrhea output. CT abd reviewed, shows very abnormal appearance of the small bowel in the mid abdomen with diffuse mural thickening and perienteric fluid in the adjacent mesenteric leads; also some luminal distention of the affected bowel loops; diagnostic considerations include nonspecific focal enteritis versus small bowel obstruction. General surgery consulted, recommends nonoperative management. Given supportive treatment with IV fluid hydration, antiemetics prn, and IV morphine prn pain. Possible component of viral gastroenteritis, Stool studies negative, Cdiff negative. Symptoms much improved, diet advanced to regular, patient tolerating well, discharge home. UTI: UA with +leuks/nitrites. Patient symptomatic with +dysuria and abdominal pain. Given antibiotics with IV rocephin. Urine culture with E.coli, pansensitive, given prescription for Cipro at discharge. HIV: chronic. Continued patient's home meds. Continue outpatient follow up. Neuropathy: chronic. continue patient's gabapentin Normocytic Anemia: chronic. patient reports chronic history of anemia. Hgb 9.7, no previous labs to compare. Uterine fibroids seen on abdominal CT. No signs of active bleeding. Stable. Pt Condition on Discharge: Stable Discharge Disposition: Discharge Home Discharge Time: <= 30 minutes Discharge Instructions DIET: Follow Instructions for: As Tolerated, No Restrictions Activities you can perform: Regular-No Restrictions Follow up Referrals: PCP Follow-up - 1 Week New Medications: Ciprofloxacin (Ciprofloxacin) 500 Mg Tab 500 MG PO BID for Infection for 5 Days, #10 TAB 0 Refills Lactobacillus Acidophilus (Lactinex) 1 Chew 1 TAB CHEW BID for Nutritional Supplement for 7 Days, #14 TAB 0 Refills Continued Medications: Citalopram (Citalopram) 20 Mg Tab 20 MG PO HS for Control Depression, #30 TAB 0 Refills Uqxohonwdxyf-Lmmsxirjse-Rgiodhmjehbe-Tenofvir (Genvoya) [phone] Mg Tab 1 TAB PO DAILY for Mgmt Viral Infection, TAB 0 Refills Gabapentin (Gabapentin) 600 Mg Tab 600 MG PO TID, TAB 0 Refills Hydroxyzine HCl (Hydroxyzine HCl) 50 Mg Tab 100 MG PO HS, TAB 0 Refills Lisinopril (Lisinopril) 20 Mg Tab 20 MG PO DAILY, TAB 0 Refills Risperidone (Risperidone) 0.5 Mg Tab 0.5 MG PO Q12HR, #60 TAB 0 Refills Annie Mendoza PA-C July 07, 2017 9:27 am
--- NOTE | 2017-07-07 11:31 | HHI.PR ---
cc: Blane Farias MD Subjective Subjective Notes no vomting tolerating diet, +flatus Objective Vitals/I&O Vital Signs Date Time Temp Pulse Resp B/P (MAP) Pulse Ox O2 Delivery O2 Flow Rate FiO2 07/07/17 07:54 98.4 71 16 128/89 (102) 96 07/04/17 07:35 Room Air Labs Date/Time Source Procedure Growth Status 07/04/17 21:30 Stool Stool - Final NO ENTERIC PATHOGENS DETECTED BY PCR... Complete 07/04/17 07:40 Urine Clean Catch Urine Culture - Final Escherichia Coli Complete Radiology Last 48 hours Impressions Abdomen/Pelvis CT 07/04/17 0337 Signed Impressions: Service Date/Time: , July 04, 2017 04:35 - CONCLUSION: 1. Very abnormal appearance of the small bowel in the midabdomen with diffuse mural thickening and perienteric fluid in the adjacent mesenteric leads. There is also some luminal distention of the affected bowel loops. Diagnostic considerations include a nonspecific focal enteritis versus partial small bowel obstruction. 2. 2.3 cm uterine fibroid pedunculated off the uterine fundus. 3. Bibasilar atelectatic changes. Toni Aponte MD Abdomen: Other (soft mild ttp, well healed surgical scar) A/P Problem List: (1) UTI (urinary tract infection) ICD Codes: N39.0 - Urinary tract infection, site not specified Status: Acute (2) Nausea & vomiting ICD Codes: R11.2 - Nausea with vomiting, unspecified Status: Acute (3) Gastritis ICD Codes: K29.70 - Gastritis, unspecified, without bleeding Status: Acute (4) Acute diarrhea ICD Codes: R19.7 - Diarrhea, unspecified Status: Acute (5) Anemia ICD Codes: D64.9 - Anemia, unspecified Status: Chronic (6) HIV (human immunodeficiency virus infection) ICD Codes: B20 - Human immunodeficiency virus [HIV] disease Status: Chronic (7) Partial small bowel obstruction ICD Codes: K56.600 - Partial intestinal obstruction, unspecified as to cause Status: Acute Assessment and Plan sbo- appears resolved PLAN reg diet oob d/c home today Problem Qualifiers (1) UTI (urinary tract infection): Qualified Codes: N30.00 - Acute cystitis without hematuria (2) Nausea & vomiting: Qualified Codes: G43.A1 - Cyclical vomiting, intractable Blane Farias MD July 07, 2017 11:31
== END 2017-07-07 16:50 | disposition home or self-care (01) ==
LOC: NEPE 03:22 → NEDA 06:29 → NEDH 10:19 → NEPFCDU 15:56
PROVIDERS: ADMIT Hospitalist; ATTEND Hospitalist
DX: R10.9 Unspecified abdominal pain (principal); D64.9 Anemia, unspecified; B20 Human immunodeficiency virus [HIV] disease; F31.9 Bipolar disorder, unspecified; I10 Essential (primary) hypertension; G62.9 Polyneuropathy, unspecified; F17.210 Nicotine dependence, cigarettes, uncomplicated; Z79.899 Other long term (current) drug therapy; D25.9 Leiomyoma of uterus, unspecified; K29.70 Gastritis, unspecified, without bleeding; R19.7 Diarrhea, unspecified; N30.00 Acute cystitis without hematuria; B96.20 Unspecified Escherichia coli [E. coli] as the cause of diseases classified elsewhere; G43.A1 Cyclical vomiting, in migraine, intractable
CPT/HCPCS: 74177; 80053; 81001; 83690; 84703; 85025; 85610; 85730; 87077; 87086; 87186; 87493; 87506; 96361; 96365; 96366; 96375; 96376; 99285; G0378; J0696; J1885; J2270; J2765; J7030; J7040; Q9967